=== PATIENT | male | born 1975 | race Caucasian/White ===

== ENCOUNTER 2022-10-09 21:32 | Emergency (ER) | payer MEDICAID ==
[~2022-10-09] VITALS: Ht 170.2 cm; Wt 72.6 kg
--- NOTE | 2022-10-09 21:35 | NUR ---
PT BIBA ALS BY Cornelius BANGURA 89 TO ER BED 9
[2022-10-09 21:36] VITALS: BP 146/81
--- NOTE | 2022-10-09 22:23 | NUR ---
DR MARTINEZ AT BEDSIDE
[2022-10-09 22:42] VITALS: BP 152/88
--- NOTE | 2022-10-09 22:42 | NUR ---
Patient discharged with v/s stable. Written and verbal after care instructions given and explained. Patient verbalized understanding. Ambulatory with steady gait. All questions addressed prior to discharge. Advised to follow up with PMD.
== END 2022-10-09 22:42 | disposition home or self-care (01) ==
LOC: MED 21:32
DX: G40.909 Epilepsy, unspecified, not intractable, without status epilepticus (principal); Z79.899 Other long term (current) drug therapy
CPT/HCPCS: 99283